=== PATIENT | female | born 2005 | race Two or more races ===

== ENCOUNTER 2025-02-20 11:48 | Emergency (ER) | payer MEDICAID, SELFPAY ==
[2025-02-20 12:38] VITALS: BP 114/78; PULSE 56; RESP 16; TEMP 36.8; O2SAT 98; BMI 42.3
--- NOTE | 2025-02-20 12:48 | XR_ITS ---
Examination: CT abdomen and pelvis without contrast. Coronal 3-D reconstructions. Sagittal 2-D reconstructions. Date and time of exam:February 20 thousand 25, 1551 hours INDICATIONS: Generalized abdominal pain nausea vomiting beginning 4 days ago CTDI: vol (mGy): 14 DLP: (mGycm): 822. Technique: Axial images of the abdomen have been obtained, 3 mm slice thickness Intravenous contrast material has not been administered. Low dose protocols were performed. One or more of the following dose reduction techniques were used; automated exposure control, adjustment of the mA and/or KV according to patient size, use of iterative reconstruction technique. Findings: No focal liver or splenic lesions. No gallstones. No pancreatic or adrenal mass. No renal or ureteral calculi, no hydronephrosis Normal appendix No bowel obstruction No diverticulitis. No uterine or pelvic mass. No bladder mass or bladder calculi The osseous structures are intact IMPRESSION: No renal or ureteral calculi, no hydronephrosis Normal appendix No bowel obstruction diverticulitis or free air.
[2025-02-20 13:59] LABS: Basophils # (Auto) 0.0 Thou/mm3 (0.0-0.2); Basophils % (Auto) 0 % (0-2.5); Eosinophils # (Auto) 0.2 Thou/mm3 (0.0-0.5); Eosinophils % (Auto) 2 % (0-10); Hematocrit 43.9 % (36.0-46.0); Hemoglobin 15.2 g/dL (12.0-16.0); Immature Granulocytes Auto 0.06 Thou/mm3 (0.00-0.00); Lymphocytes # (Auto) 1.9 Thou/mm3 (1.0-4.8); Lymphocytes % (Auto) 26 % (10-50); Mean Corpuscular HGB Conc 34.6 g/dl (31.0-37.0); Mean Corpuscular Hemoglobin 30.8 pg (25.0-35.0); Mean Corpuscular Volume 89 fL (80-100); Monocytes # (Auto) 0.5 Thou/mm3 (0.0-0.8); Monocytes % (Auto) 7 % (0-12); Neutrophils # (Auto) 4.6 Thou/mm3 (1.8-7.7); Neutrophils % (Auto) 64 % (37-80); Nucleated Red Blood Cell # 0.00 Thou/mm3 (0.00-0.00); Nucleated Red Blood Cell % 0 /100 WBC (0); Platelet Count 357 Thou/mm3 (140-440); RDW Standard Deviation 40.8 fL (36.4-46.3); Red Blood Count 4.93 Miln/mm3 (4.00-5.20); White Blood Count 7.2 Thou/mm3 (4.5-11.0)
[2025-02-20 14:13] LABS: Alanine Aminotransferase 103 U/L (10-49); Albumin, Serum 4.5 gm/dL (3.5-5.0); Albumin/Globulin Ratio 1.8 (1.2-2.2); Alkaline Phosphatase 91 U/L (46-116); Anion Gap 8 (7-16); Aspartate Amino Transferase 54 U/L (0-34); BUN/Creatinine Ratio 10 Ratio (12-20); Bilirubin,Total 0.4 mg/dL (0.3-1.2); Blood Urea Nitrogen 6 mg/dL (9-23); Calcium 9.7 mg/dL (8.3-10.6); Calcium (Corrected) 9.7 mg/dL (8.5-10.1); Carbon Dioxide 27.0 mMol/L (20.0-31.0); Chloride 105 mMol/L (98-107); Creatinine (Component) 0.6 mg/dL (0.6-1.3); Estimated Creatinine Clearance 163.7 mL/min (>60); Globulin 2.5 gm/dL (2.3-3.5); Glucose 87 mg/dL (74-106); Lipase 27 U/L (12-53); Osmolality,Calculated 276 (275-295); Potassium 4.3 mMol/L (3.4-5.1); Sodium 140 mMol/L (136-145); Total Protein 7.0 gm/dL (5.7-8.2); eGFR > 60 See Note
[2025-02-20 15:03] LABS: Collection Type, Urine Clean Catch
[2025-02-20 15:24] LABS: Bacteria,Urine Rare; Bilirubin,Urine Negative (Negative); Blood,Urine Negative (Negative); Clarity,Urine Clear (Clear/Hazy); Color,Urine Lt-Yellow (Lt Yel-Yel); Glucose, Urine Negative (Negative); HCG Qualitative,Urine Negative; Ketones,Urine Negative (Negative); Leukocyte Esterase,Urine Negative (Negative); Nitrite,Urine Negative (Negative); PH,Urine 6.5 (5.0-7.0); Protein,Urine Negative (Neg - Trace); RBC,Urine 2 /hpf (0-3); Specific Gravity,Urine 1.019 (1.001-1.035); Squamous Epithelial Cell,Urine 2 /hpf (0-5); Urobilinogen,Urine Negative mg/dL (0.0-1.0); WBC,Urine 2 /hpf (0-5)
--- NOTE | 2025-02-20 16:36 | PD.EDABDPN ---
ED Abdominal Pain RME/HPI General Chief Complaint: Abdominal Pain Stated complaint: ABD PAIN, N/V/D X 4 DAYS Time seen by provider: 02/20/25 12:08 Arrival date/time: 02/20/25 11:48 19-year-old female presents to the emergency room today complains of nausea, vomiting and diarrhea intermittently for the last 3 to 4 days Limitations: no limitations Related Data Previous Rx's ?Medication ?Instructions ?Recorded ibuprofen 800 mg tablet 800 mg PO TID PRN pain #30 tabs 02/20/25 loperamide 2 mg capsule (Imodium 2 mg PO Q6H PRN loose stool #14 02/20/25 A-D) caps ondansetron 4 mg disintegrating 4 mg PO Q8H PRN nausea and 02/20/25 tablet vomiting #10 tabs Allergies Allergy/AdvReac Type Severity Reaction Status Date / Time No Known Allergies Allergy Verified 02/20/25 11:53 Review of Systems Review of Systems Systems Reviewed: All systems reviewed, normal except as documented Constitutional Constitutional: Reports system reviewed and no additional complaints, except as documented, Denies fever(s) and Denies headache(s) Eyes Eyes: Reports system reviewed and no additional complaints, except as documented and Denies blurry vision ENT Ears, Nose, Mouth, and Throat: Reports system reviewed and no additional complaints, except as documented, Denies headache(s), Denies nasal congestion and Denies nasal discharge Cardiovascular Cardiovascular: Reports system reviewed and no additional complaints, except as documented, Denies chest pain and Denies dyspnea Respiratory Respiratory: Reports system reviewed and no additional complaints, except as documented, Denies chest congestion, Denies cough and Denies dyspnea Gastrointestinal Gastrointestinal: Reports system reviewed and no additional complaints, except as documented, Reports abdominal pain, Reports diarrhea, Reports nausea and Reports vomiting Integumentary/Breasts Skin/Breast: Reports system reviewed and no additional complaints, except as documented and Denies rash Neurologic Neurologic: Reports system reviewed and no additional complaints, except as documented, Reports as per HPI and Denies headache(s) Past Medical History Social History SMOKING STATUS: Never smoker ED Exam General Limitations: Present no limitations General appearance: Present alert and in no apparent distress Head Head exam: Present atraumatic, normocephalic and normal inspection Eye Eye exam: Present normal appearance, PERRL and EOMI; Absent conjunctival injection ENT ENT exam: Present normal exam, normal oropharynx and mucous membranes moist Neck Neck exam: Present normal inspection, full ROM and trachea midline Chest Chest inspection: Present normal inspection and symmetric chest wall rise Respiratory Respiratory exam: Present normal lung sounds bilaterally; Absent respiratory distress Cardiovascular Cardiovascular exam: Present regular rate, normal rhythm and normal heart sounds Abdominal Exam Abdominal exam: Present soft and normal bowel sounds; Absent distention, tenderness, guarding, rebound, rigidity, Sam's sign, Rovsing's sign or tenderness at McBurney's Point Abdominal tenderness: Absent RUQ or RLQ Extremities Exam Extremities exam: Present normal inspection and full ROM Back Exam Back exam: Present normal inspection and full ROM Neurological Exam Neurological exam: Present alert, oriented X3 and CN II-XII intact Psychiatric Psychiatric exam: Present normal affect and normal mood Skin Skin exam: Present warm, dry, intact and normal color Course Quality Measures none Orders Category Date Time Status CT abdomen pelvis wo con Stat Exams 02/20/25 12:48 Completed CBC Stat Lab 02/20/25 13:23 Completed Comprehensive Metabolic Panel Stat Lab 02/20/25 13:23 Completed HCG Qualitative,Urine Stat Lab 02/20/25 14:30 Completed Lipase Stat Lab 02/20/25 13:23 Completed Urinalysis Stat Lab 02/20/25 14:30 Completed Ibuprofen Tab [Motrin Tab] Med 02/20/25 16:50 Discontinued 800 mg PO X1 ONE Loperamide [Imodium] Med 02/20/25 16:50 Discontinued 4 mg PO X1 ONE Ondansetron Odt [Zofran Odt] Med 02/20/25 16:50 Discontinued 4 mg PO X1 ONE Vital Signs Vital signs: Vital Signs Temperature 98.3 F 02/20/25 12:38 Pulse Rate 56 L 02/20/25 12:38 Respiratory Rate 16 02/20/25 12:38 Blood Pressure 114/78 02/20/25 12:38 Pulse Oximetry (%) 98 02/20/25 12:38 Oxygen Delivery Method Room Air 02/20/25 12:38 O2 saturation 98% room air with normal limits Abdominal Pain MDM MDM Narrative MDM Narrative:: 19-year-old female presents to the emergency room today complains of nausea, vomiting and diarrhea intermittently for the last 3 to 4 days On exam patient well-appearing patient does not appear toxic no acute distress patient hemodynamically stable Lab work and imaging obtained no acute emergent findings noted Symptoms highly consistent with viral illness Patient given Imodium, ibuprofen, Zofran Patient discharged home in no distress to follow-up with primary care doctor in the next 24 to 48 hours and for any worsening symptoms to return to the ER immediately Patient data External records reviewed:: [facility] previous records Clinical information provided by:: patient Social determinants that could affect healthcare access:: none Patient has the following chronic illnesses:: None How is presenting disease/condition affected by chronic disease/condition?: no chronic disease Evaluation data The following diagnostics were reviewed and interpreted by me:: lab results and radiology exam(s) Lab and/or radiology exams considered but not ordered:: Labs radiology obtained Interpretation Summary: Reviewed by me Medications / Prescriptions Medications or Prescriptions considered but not ordered:: Given Medication administrations:: Medication Administration History Discontinued Medications Ibuprofen (Ibuprofen Tab 400 Mg Tablet) 800 mg PO X1 ONE Stop: 02/20/25 16:51 Last Admin: 02/20/25 17:01 Dose: 800 mg Documented By: KATHIA Loperamide HCl (Loperamide 2 Mg Capsule) 4 mg PO X1 ONE Stop: 02/20/25 16:51 Last Admin: 02/20/25 17:02 Dose: 4 mg Documented By: OA Ondansetron HCl (Ondansetron Odt 4 Mg Tabrap) 4 mg PO X1 ONE; Protocol Stop: 02/20/25 16:51 Last Admin: 02/20/25 17:02 Dose: 4 mg Documented By: OA Given Consultations Consultation(s) initiated? (list below): No Diagnosis Differential diagnosis abdominal pain: abdominal pain, acute appendicitis, pancreatitis and small bowel obstruction Most likely diagnosis given after review of the tests above:: Abdominal pain Admission Indicated Admission indicated?: not indicated Admission Request Was there a request for admission?: No Disposition Plan Disposition Plan: Discharge Discharge Attestation Discharge Attestation: The patient and all family members were given an opportunity to ask questions and understood the discharge instructions. Discharge instructions specifically effects, indications for sooner follow up or return to the emergency department, and the expected course of current diagnosis. Patient condition: Stable Discharge Plan Plan Patient Disposition: HOME (Self Care) Discharge Disposition comment: Stable Prescriptions/Referrals Prescriptions/Med Rec: New loperamide [Imodium A-D] 2 mg capsule 2 mg PO Q6H PRN (Reason: loose stool) Qty: 14 0RF ibuprofen 800 mg tablet 800 mg PO TID PRN (Reason: pain) Qty: 30 0RF ondansetron 4 mg tablet,disintegrating 4 mg PO Q8H PRN (Reason: nausea and vomiting) Qty: 10 0RF Referrals: Autumn Alberts PA-C [Primary Care Provider] - 02/21/25 Problem List Clinical Impression: Abdominal pain, Nausea vomiting and diarrhea Patient/Caregiver Discharge Instructions Education Materials: Abdominal Pain Additional Instructions: Please follow up with your primary care doctor in the next 24-48hrs for any worsening symptoms return here immediately Print Language: Barbadian Stand Alone Forms: [employer] Award Info., Work/School Release, Patient Portal Info Letter PA/BK Supervising Physician PA/BK Supervising Physician: Dr. Pardo
[2025-02-20] MEDS: IBUPROFEN TAB 400 MG TABLET 800 MG PO (17:01)
[2025-02-20] MEDS: LOPERAMIDE 2 MG CAPSULE 4 MG PO (17:02)
[2025-02-20] MEDS: ONDANSETRON ODT 4 MG TABRAP PO (17:02)
== END 2025-02-20 18:59 | disposition home or self-care (01) ==
PROVIDERS: Nurse Practitioner Family; Emergency Provider Emergency Medicine; PCP Physician Assistant
DX: R11.2 Nausea with vomiting, unspecified (principal); R19.7 Diarrhea, unspecified; R10.84 Generalized abdominal pain
CPT/HCPCS: 36415; 74176; 80053; 81001; 81025; 83690; 85025; 99283; Q0162; A9270

== ENCOUNTER 2025-05-27 15:02 | Emergency (ER) | payer MEDICAID, SELFPAY ==
[2025-05-27 15:02] VITALS: BMI 37.8
[2025-05-27 15:18] VITALS: BP 111/73; PULSE 70; RESP 18; TEMP 37.1; O2SAT 99
--- NOTE | 2025-05-27 16:09 | XR_ITS ---
Examination: Pelvic ultrasound, transabdominal, complete Technique: Transabdominal ultrasound of the pelvis performed using grayscale imaging Date and time of exam: May 27, 2025, 1707 hours INDICATIONS: Pelvic pain beginning 2 days ago FINDINGS: Uterus 6.6 cm endometrial stripe 0.9 cm No uterine mass or intrauterine gestation Right ovary 2.4 cm arterial flow Left ovary 2.2 cm arterial flow IMPRESSION: Negative examination
--- NOTE | 2025-05-27 16:13 | PD.EDRME ---
Rapid Medical Screening Exam E Arrival date/time: 05/27/25 15:02 This is a 20-year-old female that comes into the emergency room with complaints of left lower pelvic pain. Patient states she feels a shocking feeling to left lower abdomen. Patient states she is currently on her menstrual cycle. Patient states this is does not feel like menstrual cramps. Patient states that she does not think she is . Patient denies any past medical history. Patient does complain of lower back pain and nausea. I have greeted and performed a focused initial assessment of this patient. Initial appropriate labs ordered at this time. A comprehensive ED assessment and evaluation of the patient and analysis of all test and completion of medical decision making process will be conducted by additional ED provider. Chief Complaint: Abdominal Pain Time Seen by Provider: 05/27/25 15:56 Vital signs: Vital Signs Temperature 98.8 F 05/27/25 15:18 Pulse Rate 70 05/27/25 15:18 Respiratory Rate 18 05/27/25 15:18 Blood Pressure 111/73 05/27/25 15:18 Pulse Oximetry (%) 99 05/27/25 15:18 Oxygen Delivery Method Room Air 05/27/25 15:18 Exam: Alert and oriented, breathing even and unlabored, skin warm and dry Clinical Impression: Abdominal pain
[2025-05-27 16:30] LABS: Basophils # (Auto) 0.0 Thou/mm3 (0.0-0.2); Basophils % (Auto) 0 % (0-2.5); Eosinophils # (Auto) 0.1 Thou/mm3 (0.0-0.5); Eosinophils % (Auto) 2 % (0-10); Hematocrit 41.8 % (36.0-46.0); Hemoglobin 14.4 g/dL (12.0-16.0); Immature Granulocytes Auto 0.02 Thou/mm3 (0.00-0.00); Lymphocytes # (Auto) 1.8 Thou/mm3 (1.0-4.8); Lymphocytes % (Auto) 24 % (10-50); Mean Corpuscular HGB Conc 34.4 g/dl (31.0-37.0); Mean Corpuscular Hemoglobin 31.0 pg (25.0-35.0); Mean Corpuscular Volume 90 fL (80-100); Monocytes # (Auto) 0.8 Thou/mm3 (0.0-0.8); Monocytes % (Auto) 11 % (0-12); Neutrophils # (Auto) 4.9 Thou/mm3 (1.8-7.7); Neutrophils % (Auto) 63 % (37-80); Nucleated Red Blood Cell # 0.00 Thou/mm3 (0.00-0.00); Nucleated Red Blood Cell % 0 /100 WBC (0); Platelet Count 313 Thou/mm3 (140-440); RDW Standard Deviation 39.8 fL (36.4-46.3); Red Blood Count 4.64 Miln/mm3 (4.00-5.20); White Blood Count 7.7 Thou/mm3 (3.6-11.0)
[2025-05-27 16:41] LABS: Collection Type, Urine Voided
[2025-05-27 16:48] LABS: Alanine Aminotransferase 43 U/L (10-49); Albumin, Serum 4.5 gm/dL (3.5-5.0); Albumin/Globulin Ratio 1.9 (1.2-2.2); Alkaline Phosphatase 65 U/L (46-116); Anion Gap 9 (7-16); Aspartate Amino Transferase 29 U/L (0-34); BUN/Creatinine Ratio 8 Ratio (12-20); Bilirubin,Total 0.4 mg/dL (0.3-1.2); Blood Urea Nitrogen < 5 mg/dL (9-23); Calcium 9.1 mg/dL (8.3-10.6); Calcium (Corrected) 9.1 mg/dL (8.5-10.1); Carbon Dioxide 27.4 mMol/L (20.0-31.0); Chloride 109 mMol/L (98-107); Creatinine (Component) 0.6 mg/dL (0.6-1.3); Estimated Creatinine Clearance 152.1 mL/min (>60); Globulin 2.4 gm/dL (2.3-3.5); Glucose 74 mg/dL (74-106); Lipase 29 U/L (12-53); Osmolality,Calculated 284 (275-295); Potassium 4.0 mMol/L (3.4-5.1); Sodium 145 mMol/L (136-145); Total Protein 6.9 gm/dL (5.7-8.2); eGFR > 60 See Note
[2025-05-27 16:52] LABS: Amorphous Crystals,Urine Present (Absent); Bilirubin,Urine Negative (Negative); Blood,Urine 3+ (Negative); Clarity,Urine Turbid (Clear/Hazy); Glucose, Urine Negative (Negative); Ketones,Urine Negative (Negative); Leukocyte Esterase,Urine Positive (Negative); Nitrite,Urine Negative (Negative); PH,Urine 8.0 (5.0-7.0); Protein,Urine 1+ (Neg - Trace); RBC,Urine 1834 /hpf (0-3); Specific Gravity,Urine 1.022 (1.001-1.035); Squamous Epithelial Cell,Urine 7 /hpf (0-5); Urobilinogen,Urine Negative mg/dL (0.0-1.0); WBC,Urine 25 /hpf (0-5)
[2025-05-27 16:53] LABS: Color,Urine Lt-Red (Lt Yel-Yel); Culture Indicated,Urine Yes
[2025-05-27 16:54] LABS: HCG Qualitative,Urine Negative
[2025-05-27 17:43] VITALS: BP 96/56; PULSE 57; RESP 16; TEMP 37; O2SAT 97
--- NOTE | 2025-05-27 17:50 | EDNOTE_ITS ---
ED General RME/HPI General Chief complaint: Abdominal Pain Stated complaint: LLQ ABD PAIN WITH N/V X3 WEEKS Time Seen by Provider: 05/27/25 15:56 Arrival date/time: 05/27/25 15:02 CC: Left lower quadrant abdominal pain HPI ongoing for the past 2 weeks started her menses today. Denies any back pain nausea vomiting diarrhea no OTC medicine taken. RME / HPI RME / HPI narrative: 05/27/25 15:02 This is a 20-year-old female that comes into the emergency room with complaints of left lower pelvic pain. Patient states she feels a shocking feeling to left lower abdomen. Patient states she is currently on her menstrual cycle. Patient states this is does not feel like menstrual cramps. Patient states that she does not think she is . Patient denies any past medical history. Patient does complain of lower back pain and nausea. I have greeted and performed a focused initial assessment of this patient. Initial appropriate labs ordered at this time. A comprehensive ED assessment and evaluation of the patient and analysis of all test and completion of medical decision making process will be conducted by additional ED provider. Exam: Alert and oriented, breathing even and unlabored, skin warm and dry Impression: Abdominal pain Related Data Previous Rx's ?Medication ?Instructions ?Recorded ibuprofen 800 mg tablet 800 mg PO TID PRN pain #30 t abs 02/20/25 loperamide 2 mg capsule (Imodium 2 mg PO Q6H PRN loose stool #14 02/20/25 A-D) caps ondansetron 4 mg disintegrating 4 mg PO Q8H PRN nausea and 02/20/25 tablet vomiting #10 tabs Allergies Allergy/AdvReac Type Severity Reaction Status Date / Time amoxicillin Allergy Intermediate Hives Verified 05/27/25 15:05 Review of Systems Review of Systems Narrative Review of Systems: GEN: No fever, no chills, no weight loss EYES: No discharge, no visual changes, no pain HEENT: No ear pain, no congestion, no sore throat PULM: No shortness of breath, no cough, no congestion CV: No chest pain, no dyspnea on exertion, no palpitations GI: No nausea, no vomiting, no diarrhea, + pain, no constipation : No frequency, no urgency, no dysuria MUSC/SKEL: No joint pain, no back pain SKIN: No rash PSYCH: No hallucinations, no depression HEME/LYMPH: No easy bleeding or bruising tendencies NEURO: No weakness, no headache Past Medical History Past Medical History NEUROLOGIC: Negative Neurological Disorders CARDIAC: Negative Cardiac Disorders or Congestive Heart Failure RESPIRATORY: Negative Respiratory Disorders or Chronic Obstructive Pulmonary Disease (COPD) GASTROINTESTINAL: Negative Gastrointestinal Disorders GENITOURINARY: Negative Genitourinary Disorders or Renal Disease REPRODUCTIVE: Negative Pelvic Inflammatory Disease MUSCULOSKELETAL: Negative Musculoskeletal Disorders ENT: Negative History of ENT Problems ENDOCRINE: Negative Endocrine Disorders, Diabetes Mellitus Type 1 or Diabetes Mellitus Type 2 OTHER HISTORY: Negative Autoimmune Disease, Anesthesia Reactions, MRSA, Clostridium Difficile or Cancer Family History FAMILY HISTORY: Negative Family Cardiac Disorders Surgical History SURGICAL: Negative Abdominal Surgery, Nephrectomy, Joint Replacement, Brain Shunt or Lumpectomy Social History SMOKING STATUS: Never smoker ED Exam Narrative Physical exam: [General: Obese in mild discomfort but not in any acute distress Head normocephalic HEENT: Within acceptable limits Neck is supple nontender Chest equal chest rise nontender to palpation Respiratory: Clear to auscultation no wheezes crackles or rubs CV: Rate rhythm is regular no murmurs rubs or clicks Abdomen is grossly distended secondary to body habitus soft, mild tenderness in the left lower quadrant. No masses positive bowel sounds all 4 quadrants Back: No CVA tenderness no spinous process tenderness from cervical spine thoracic and lumbar spine Skin: Intact no petechiae rash induration ulceration or crepitus Extremities: Moving all extremity against resistance cap refill less than 2 seconds neurosensory intact Neuro: Awake alert oriented x3 Glascow coma 15 no focal deficits] Course Course Course Narrative: At 1752 patient has no acute finding requires emergent or immediate intervention, will CT the abdomen as I feel this is not in the inguinal crease but rather on the pannus of the left lower quadrant of the abdomen. Quality Measures none Orders Category Date Time Status CT abdomen pelvis wo con Stat Exams 05/27/25 17:50 Completed US pelvic complete Stat Exams 05/27/25 16:09 Completed CBC Stat Lab 05/27/25 16:20 Completed Comprehensive Metabolic Panel Stat Lab 05/27/25 16:20 Completed HCG Qualitative,Urine Stat Lab 05/27/25 16:34 Completed Lipase Stat Lab 05/27/25 16:20 Completed Urinalysis, C/S if Indicated Stat Lab 05/27/25 16:34 Completed Urine Culture Stat Lab 05/27/25 16:34 Received Ketorolac Inj [Toradol Inj] Med 05/27/25 17:52 Discontinued 15 mg IM X1 ONE Vital Signs Vital signs: Vital Signs Temperature 98.8 F 05/27/25 15:18 Pulse Rate 70 05/27/25 15:18 Respiratory Rate 18 05/27/25 15:18 Blood Pressure 111/73 05/27/25 15:18 Pulse Oximetry (%) 99 05/27/25 15:18 Oxygen Delivery Method Room Air 05/27/25 15:18 Discharge Plan Plan Patient Disposition: HOME (Self Care) Patient condition on transfer: Stable Prescriptions/Referrals Prescriptions/Med Rec: No Action loperamide [Imodium A-D] 2 mg capsule 2 mg PO Q6H PRN (Reason: loose stool) Qty: 14 0RF ibuprofen 800 mg tablet 800 mg PO TID PRN (Reason: pain) Qty: 30 0RF ondansetron 4 mg tablet,disintegrating 4 mg PO Q8H PRN (Reason: nausea and vomiting) Qty: 10 0RF Referrals: Autumn Alberts PA-C [Primary Care Provider] - In 1 week Problem List Clinical Impression: Abdominal pain, left lower quadrant Patient/Caregiver Discharge Instructions Education Materials: Abdominal Pain Additional Instructions: There is no acute finding requires emergent or immediate intervention. At this time take the medication as provided follow-up with your primary care for an outpatient referral. Print Language: Jordanian Stand Alone Forms: [employer] Award Info., Work/School Release, Patient Portal Info Letter ETSS/BK Supervising Physician PA/BK Supervising Physician: Gilbert Silverio ENP [facility] Clinical Information Provided by: patient Medical Records reviewed [facility] Meds/Rx considered, not ordered None Labs/Rad/Tests considered, not ordered None Chronic Illness/Social Conditions Explain: Obesity Labs Labs: interpreted by nd Lab(s) Interpretation(s): CBC shows no acute leukocytosis anemia thrombocytopenia CMP shows no acute electrolyte imbalances renal impairment transaminitis or T. bili elevation Urine is red-tinged with large RBCs no bacteria. Imaging Imaging interpretation: interpreted by nd Imaging Interpretation(s): Pelvic ultrasound is unremarkable for any acute finding. CT of the abdomen pelvis is negative for any acute finding requires emergent or main intervention. Medication Administration(s) Medication Administration History Discontinued Medications Ketorolac Tromethamine (Ketorolac Inj 30 Mg/Ml Vial) 15 mg IM X1 ONE Stop: 05/27/25 17:53 Last Admin: 05/27/25 18:07 Dose: 15 mg Documented By: BY
--- NOTE | 2025-05-27 17:50 | XR_ITS ---
Examination: CT abdomen and pelvis without contrast. Coronal 3-D reconstructions. Sagittal 2-D reconstructions. Date and time of exam: May 27, 2025, 1803 hours, comparison February 20, 2025 INDICATIONS: Left lower abdominal pain bilateral flank pain beginning 2 days ago CTDI: vol (mGy): 15.9 DLP: (mGycm): 850 Technique: Axial images of the abdomen have been obtained, 3 mm slice thickness Intravenous contrast material has not been administered. Low dose protocols were performed. One or more of the following dose reduction techniques were used; automated exposure control, adjustment of the mA and/or KV according to patient size, use of iterative reconstruction technique. Findings: No focal liver or splenic lesions Contracted gallbladder No pancreatic mass No renal or ureteral calculi, no hydronephrosis Aorta normal size Normal appendix Minute fat-containing umbilical hernia No bowel obstruction or diverticulitis No pelvic mass Contracted urinary bladder Intact osseous structures IMPRESSION: No renal or ureteral calculi, no hydronephrosis Normal appendix No bowel obstruction diverticulitis or free air
[2025-05-27] MEDS: KETOROLAC INJ 30 MG/ML VIAL 15 MG IM (18:07)
[2025-05-27 19:10] VITALS: RESP 18
== END 2025-05-27 19:11 | disposition home or self-care (01) ==
PROVIDERS: Nurse Practitioner Family; Emergency Provider Emergency Medicine; PCP Physician Assistant
DX: R10.32 Left lower quadrant pain (principal); R10.22 Pelvic and perineal pain left side
CPT/HCPCS: 36415; 74176; 76856; 80053; 81001; 81025; 83690; 85025; 87086; 96372; 99283; J1885